=== PATIENT | female | born 1955 | race Two or more races ===

== ENCOUNTER 2018-03-15 21:06 | Emergency (ER) | payer SELFPAY ==
--- NOTE | 2018-03-15 21:10 | PDOC ---
History of Present Illness - General History Source: Patient Exam Limitations: No Limitations - History of Present Illness Initial Comments: 03/15/18 21:51 The patient is a 63 year old female, with a significant PMH of GERD, who presents to the emergency department with one week of shortness of breath. The patient states that she feels like she is gasping for air lately while at rest. The patient states she experienced the same symptoms of shortness of breath 2 years ago when she was noted to have high blood pressure and began Ramipril medication from her garment examiner Dr. Shania Wild. The patient states she was evaluated at an urgent care earlier today and advised to come to the ED for evaluation. The patient also endorses palpitations, fatigue, and epigastric abdominal discomfort which she states is usual of her GERD symptoms. She denies any recent travel, surgery or malignancies. She denies any family history of thromboembolic incidents. The patient states she has a family cardiac history ( brother passed of heart related condition in his 40s and both parents passed of heart disease). The patient states she has "borderline high cholesterol" which is untreated. The patient denies chest pain, headache and dizziness. Denies fever, chills, nausea, vomit, diarrhea and constipation. Denies dysuria, frequency, urgency and hematuria. Allergies: codeine Social history: Denies tobacco use. PCP: Dr Graves. <Nic Cleveland - Last Filed: 03/15/18 21:55> <Leah Humphries - Last Filed: 03/19/18 02:54> - General Chief Complaint: Shortness of Breath Stated Complaint: SOB Time Seen by Provider: 03/15/18 21:10 Past History <Nic Cleveland - Last Filed: 03/15/18 21:55> - Suicide/Smoking/Psychosocial Hx Smoking History: Never smoked <Leah Humphries - Last Filed: 03/19/18 02:54> - Past Medical History Allergies/Adverse Reactions: Allergies Allergy/AdvReac Type Severity Reaction Status Date / Time codeine AdvReac Vomiting Verified 03/15/18 21:09 Home Medications: Ambulatory Orders Aspirin [Aspirin EC] 324 mg PO ONCE 03/15/18 Ramipril 10 mg PO DAILY 03/15/18 Review of Systems - Review of Systems Comments:: 03/15/18 21:51 GENERAL/CONSTITUTIONAL: +Fatigue. No fever or chills. No weakness. HEAD, EYES, EARS, NOSE AND THROAT: No change in vision. No ear pain or discharge. No sore throat. CARDIOVASCULAR: +Shortness of breath. +Palpitations. No chest pain. RESPIRATORY: No cough, wheezing, or hemoptysis. GASTROINTESTINAL: +Epigastric discomfort. No nausea, vomiting, diarrhea or constipation. GENITOURINARY: No dysuria, frequency, or change in urination. MUSCULOSKELETAL: No joint or muscle swelling or pain. No neck or back pain. SKIN: No rash NEUROLOGIC: No headache, vertigo, loss of consciousness, or change in strength/ sensation. ENDOCRINE: No increased thirst. No abnormal weight change. HEMATOLOGIC/LYMPHATIC: No anemia, easy bleeding, or history of blood clots. ALLERGIC/IMMUNOLOGIC: No hives or skin allergy. <Nic Cleveland - Last Filed: 03/15/18 21:55> *Physical Exam - Vital Signs Last Vital Signs Temp Pulse Resp BP Pulse Ox 98.1 F 53 L 18 187/93 100 03/15/18 21:06 03/15/18 21:06 03/15/18 21:06 03/15/18 21:06 03/15/18 21:06 - Physical Exam Comments: 03/15/18 21:55 GENERAL: Awake, alert, and fully oriented, in no acute distress HEAD: No signs of trauma EYES: PERRLA, EOMI, sclera anicteric, conjunctiva clear ENT: Auricles normal inspection, hearing grossly normal, nares patent, oropharynx clear without exudates. Moist mucosa NECK: Normal ROM, supple, no lymphadenopathy, JVD, or masses LUNGS: Breath sounds equal, clear to auscultation bilaterally. No wheezes, and no crackles HEART: Regular rate and rhythm, normal S1 and S2, no murmurs, rubs or gallops ABDOMEN: +Epigastric tenderness. No guarding, no rebound. Soft, nontender, normoactive bowel sounds. No masses EXTREMITIES: Normal range of motion, no edema. No clubbing or cyanosis. No cords, erythema, or tenderness NEUROLOGICAL: Cranial nerves II through XII grossly intact. Normal speech, normal gait SKIN: Warm, Dry, normal turgor, no rashes or lesions noted. <Nic Cleveland - Last Filed: 03/15/18 21:55> Heart Score/ECG Review - History History: Slightly suspicious - Electrocardiogram EKG: Normal - Age Age: 45-65 - Risk Factors Risk Factors Heart Score: Yes Hx Hypertension, Yes Positive family hx of cardiac disease Based on the list above the patient has:: 1-2 risk factors - Troponin Troponin: </= normal limit - Score Heart Score - Total: 2 <Leah Humphries - Last Filed: 03/19/18 02:54> ED Treatment Course - LABORATORY CBC & Chemistry Diagram: 03/15/18 21:30 03/15/18 21:30 - ADDITIONAL ORDERS Additional order review: 03/15/18 21:30 RBC 4.14 MCV 88.8 MCHC 34.4 RDW 13.1 MPV 9.4 Neutrophils % 60.7 Lymphocytes % 31.5 Monocytes % 5.5 Eosinophils % 1.5 Basophils % 0.8 <Nic Cleveland - Last Filed: 03/15/18 21:55> - LABORATORY CBC & Chemistry Diagram: 03/15/18 21:30 03/15/18 21:30 <Leah Humphries - Last Filed: 03/19/18 02:54> Progress Note - Progress Note Progress Note: Documentation has been prepared under my direction and personally reviewed by me in its entirety. I attest that this documented accurately reflects all work, treatment, procedures and medical decision making performed by me. <Leah Humphries - Last Filed: 03/19/18 02:54> Medical Decision Making - Medical Decision Making As noted above, this 63-year-old woman presents with several day history of shortness of breath; she has also noted that her blood pressure has been elevated. No chest pain or associated symptoms have been reported. Exam as noted Workup included cardiac enzymes/d-dimer/BNP Because d-dimer was quite elevated (1900), CTA of the chest was performed: This was entirely normal; negative for pulmonary embolus specifically Patient's heart score is 2 First troponin was less than 0.3; 3 hour troponin was also not elevated. Patient will follow-up with garment examiner tomorrow(she had arranged while waiting results of her workup for follow-up appointment in the office). She should return to the emergency room if she has any further severe dyspnea or experiences chest pain/palpitations <Leah Humphries - Last Filed: 03/19/18 02:54> *DC/Admit/Observation/Transfer - Attestations Scribe Attestion: 03/15/18 21:52 Documentation prepared by Nic Cleveland, acting as medical hospital sales for Leah Humphries MD. <Nic Cleveland - Last Filed: 03/15/18 21:55> <Leah Humphries - Last Filed: 03/19/18 02:54> Diagnosis at time of Disposition: Hypertension Qualifiers: Hypertension type: essential hypertension Qualified Code(s): I10 - Essential ( primary) hypertension - Discharge Dispostion Disposition: HOME Condition at time of disposition: Stable - Referrals Referrals: Adalid Graves MD [Primary Care Provider] - Shania Wild MD [Staff Physician] - 24 hours - Patient Instructions Printed Discharge Instructions: Caregiver Stress: The Impact of Chronic Disease on the Family, High Blood Pressure Additional Instructions: Follow-up with garment examiner in Dr. Wild's office during the coming day as scheduled Return to ER if you have any worsening sensation of shortness of breath or develop chest pain, worsening palpitations - Post Discharge Activity
[2018-03-15 21:41] VITALS: TEMP 98.1; BMI 25.7
[2018-03-15 21:45] LABS: BASO % 0.8 % (0-2.0); EOS % 1.5 % (0-4.5); HEMATOCRIT 36.8 % (32.4-45.2); HEMOGLOBIN 12.7 GM/dl (10.7-15.3); LYMPH % 31.5 % (8-40); MCH 30.6 pg (25.7-33.7); MCHC 34.4 g/dl (32.0-36.0); MEAN CELL VOLUME 88.8 fl (80-96); MEAN PLT VOLUME 9.4 fl (7.5-11.1); MONO % 5.5 % (3.8-10.2); NEUT % 60.7 % (42.8-82.8); PLATELET COUNT 226 K/MM3 (134-434); RBC 4.14 M/mm3 (3.60-5.2); RDW 13.1 % (11.6-15.6); WHITE BLOOD COUNT 6.6 K/mm3 (4.0-10.8)
[2018-03-15 21:51] LABS: INR 1.06 (0.82-1.09); PROTHROMBIN TIME (PATIENT) 11.8 SEC (10.2-13.0)
[2018-03-15 21:57] LABS: ALBUMIN 4.4 g/dl (3.5-5.0); ALK PHOS 48 U/L (32-92); ANION GAP 8 (8-16); BILIRUBIN,TOTAL 0.4 mg/dl (0.2-1.0); BLOOD UREA NITROGEN 13 mg/dl (7-18); CALCIUM 9.4 mg/dl (8.4-10.2); CHLORIDE 105 mmol/L (98-107); CO2 25 mmol/L (22-28); CREATININE 0.7 mg/dl (0.6-1.3); GLUCOSE,RANDOM 91 mg/dl (74-106); POTASSIUM 3.6 mmol/L (3.5-5.1); SGOT/AST 16 U/L (10-42); SGPT/ALT 14 U/L (10-40); SODIUM 138 mmol/L (136-145); TOT PROT 6.6 g/dl (6.4-8.3)
[2018-03-16 00:45] VITALS: BP 181/89; PULSE 50
[2018-03-16] MEDS ORDERED: FAMOTIDINE 20 MG TABLET PO ONE (01:26)
[2018-03-16] MEDS ORDERED: FAMOTIDINE 20 MG TABLET ONE (01:38)
--- NOTE | 2018-03-16 08:55 | EKG ---
Test Reason : Blood Pressure : / mmHG Vent. Rate : 047 BPM Atrial Rate : 047 BPM P-R Int : 166 ms QRS Dur : 090 ms QT Int : 462 ms P-R-T Axes : 055 -20 011 degrees QTc Int : 408 ms SINUS BRADYCARDIA SEPTAL INFARCT , AGE UNDETERMINED NONSPECIFIC ST ABNORMALITY NO PREVIOUS ECGS AVAILABLE Confirmed by MASTER FELDER MD ([id number]) on 03/16/2018 8:55:26 AM Referred By: DR ULLOA Confirmed By:MASTER FELDER MD
== END 2018-03-16 02:17 | disposition home or self-care (01) ==
LOC: FER 21:06
DX: I10 Essential (primary) hypertension (principal)
CPT/HCPCS: 36415; 71045-TC-FY; 71275-TC; 80053; 82550; 83880; 84484; 85025; 85379; 85610; 93005; 99284-25

== ENCOUNTER 2018-09-27 12:11 | Emergency (ER) | payer OTHER ==
[2018-09-27 12:15] VITALS: TEMP 98.1; BMI 26.6
--- NOTE | 2018-09-27 12:42 | PDOC ---
Attending Attestation - Resident Resident Name: MaximinoNic - HPI HPI: 09/27/18 13:52 Pt presents to the ED complaining of a two day history of generalized abdominal pain. Pain is constant, cramping, moderate in severity. States that she has been constipated for more than one week, although she has been having small bowel movements. She is able to eat without vomiting, although with nausea and decreased appetite. Denies fever or urinary complaints. STates that she is unable to pass flatus. - Physicial Exam PE: 09/27/18 13:55 Agree with resident exam. PAteint is alert and awake and in no acute distress. Abdomen is soft, non tender, non distended without guarding or rebound. - Medical Decision Making 09/27/18 14:12 Pt presents to the ED complaining of abdominal pain and distention and constipation. Sent from clinic to rule out SBO. Will check CT abdomen and pelvis to evaluate for SBO, colitis, other intraabdominal pathology. Will check lipase to evaluate for pancreatitis. Will check Ua to evaluate for UTI. Will give IV tylenolol for pain control. Will discharge home if imaging is negative. 09/27/18 14:16
--- NOTE | 2018-09-27 12:47 | PDOC ---
History of Present Illness - General Chief Complaint: Pain, Acute Stated Complaint: abdominal pain,constipation,abdominal distension Time Seen by Provider: 09/27/18 12:40 History Source: Patient Exam Limitations: No Limitations - History of Present Illness Initial Comments: 63 yo F w a pmh of HTN, HLD, GERD who presents to the ER from the urgent care clinic stating she thinks she might have a bowel obstruction. She believes she experienced food poisoning one week prior on and says everything has nor been right since. Today she has epigastric bowel disomfort and is burping multiple times a minute. She reports that she had an episode of diarrhea this morning which she says had brown blood around it and there was blood on the tissue. She rates her epigastric pain as 6 out of 10 now but at times it can be 10/10. She describes the pain as stabbing in nature. She has been experiencing mild nausea but no emesis. She reports that she has not had a fever at any point during her illness. She has not taken any medications other than Prilosec to relieve her symptoms. She denies chest pain, SOB, difficulty breathing, headache, neck pain, vomiting , fever, chills, infections, dysuria, frequency, urgency, flank pain, back pain , recent travel, ankle or wrist swelling, or other joint pain. PCP: Dr. Graves PSH: None reported Allergies: Codeine Social Hx: Drinks wine, denies smoking or other substance usage. Past History - Past Medical History Allergies/Adverse Reactions: Allergies Allergy/AdvReac Type Severity Reaction Status Date / Time codeine AdvReac Vomiting Verified 09/27/18 12:12 Home Medications: Ambulatory Orders Ramipril 10 mg PO DAILY 03/15/18 Amlodipine Besylate [Norvasc -] 5 mg PO DAILY 09/27/18 Ciprofloxacin HCl [Cipro] 500 mg PO BID #14 tablet 09/27/18 metroNIDAZOLE [Metronidazole] 500 mg PO TID #21 tablet 09/27/18 COPD: No HTN: Yes - Suicide/Smoking/Psychosocial Hx Smoking History: Never smoked Have you smoked in the past 12 months: No Hx Alcohol Use: No Drug/Substance Use Hx: No Review of Systems - Review of Systems Able to Perform ROS?: Yes Comments:: CONSTITUTIONAL: Absent: fever, no chills, no fatigue EYES: Absent: visual changes ENT: Absent: ear pain, no sore throat CARDIOVASCULAR: Absent: chest pain, no palpitations RESPIRATORY: Absent: cough, no SOB GI: Present: Abdominal pain, nausea, diarrhea Absent: no vomiting, no constipation GENITOURINARY: Absent: dysuria, no frequency, no hematuria MUSKULOSKELETAL: Absent: back pain, no arthralgia, no myalgia SKIN: Absent: rash NEURO: Absent: headache *Physical Exam - Vital Signs Last Vital Signs Temp Pulse Resp BP Pulse Ox 98.1 F 79 18 129/77 99 09/27/18 12:11 09/27/18 12:11 09/27/18 12:11 09/27/18 12:11 09/27/18 12:11 - Physical Exam Comments: GENERAL: Well-appearing, well-nourished. No apparent distress. HEENT: Normocephalic, atraumatic. PERRL, EOM intact. CARDIOVASCULAR: Normal S1, S2. Regular rate and rhythm. PULMONARY: Clear to auscultation bilaterally. ABDOMEN: Abdomen is diffusely tender but still soft, non-distended, and with normal bowel sounds. Negative tolliver and negative Rovsig. EXTREMITIES: Normal ROM in all four extremities. No gross deformities. SKIN: Warm, dry. No rash NEUROLOGICAL: No focal neurological deficits. Moderate Sedation - Procedure Monitoring Vital Signs: Procedure Monitoring Vital Signs Temperature 98.1 F 09/27/18 12:11 Pulse Rate 79 09/27/18 12:11 Respiratory Rate 18 09/27/18 12:11 Blood Pressure 129/77 09/27/18 12:11 O2 Sat by Pulse Oximetry (%) 99 09/27/18 12:11 ED Treatment Course - LABORATORY CBC & Chemistry Diagram: 09/27/18 13:16 09/27/18 13:16 Medical Decision Making - Medical Decision Making 63 yo F w a pmh of HTN, HLD, GERD who presents to the ER from the urgent care clinic stating she thinks she might have a bowel obstruction. She believes she experienced food poisoning one week prior on and says everything has nor been right since. Today she has epigastric bowel disomfort and is burping multiple times a minute. She reports that she had an episode of diarrhea this morning which she says had brown blood around it and there was blood on the tissue. DDx IBNLT: SBO, colitis, diverticulitis, gastroenteritis, UTI, pylo, kidney stones, pancreatitis, mesenteric ischemia. Plan: Labs, urine, CTAP, re-assess. - Labs unremarkable. CTAP showed acute sigmoid diverticulitis. -Will DC patient on cipro and flagyl and have her follow up with PCP. *DC/Admit/Observation/Transfer Diagnosis at time of Disposition: Diverticulitis - Discharge Dispostion Disposition: HOME Condition at time of disposition: Stable Decision to Admit order: No - Prescriptions Prescriptions: Ciprofloxacin HCl [Cipro] 500 mg PO BID #14 tablet metroNIDAZOLE [Metronidazole] 500 mg PO TID #21 tablet - Referrals Referrals: Adalid Graves MD [Staff Physician] - - Patient Instructions Printed Discharge Instructions: DI for Diverticulitis Additional Instructions: You came into the ER with abdominal pain and some blood in your stools. We did a cat scan which showed you have diverticulitis - please see attached handout for further explanation. We are sending antibiotics to your pharmacy for you to take for the next seven days. Please make sure to schedule a follow up appointment with your primary care doctor in te next 3 to 5 days to ensure you are getting better and being taken care of. Please come back to thew ER if your pain worsens, you start vomiting, get a high fever, or have any other new or worsening concerns. Thank you for coming to the [place] [facility]. We hope you feel better soon! Print Language: GUYANESE - Post Discharge Activity
[2018-09-27] MEDS ORDERED: ACETAMINOPHEN 1000 MG/100 ML VIAL (NON FORMULARY) IVPB ONE (12:57)
[2018-09-27] MEDS ORDERED: SODIUM CHLORIDE 0.9% 500 ML INFUS.BAG IV ONE (12:59)
[2018-09-27] MEDS ORDERED: ACETAMINOPHEN INJECTION 100 ML IVPB ONE (13:09)
[2018-09-27 13:25] LABS: BASO % 0.4 % (0-2.0); EOS % 0.3 % (0-4.5); HEMATOCRIT 38.7 % (32.4-45.2); HEMOGLOBIN 12.6 GM/dl (10.7-15.3); LYMPH % 11.3 % (8-40); MCH 28.5 pg (25.7-33.7); MCHC 32.5 g/dl (32.0-36.0); MEAN CELL VOLUME 87.7 fl (80-96); MEAN PLT VOLUME 8.7 fl (7.5-11.1); MONO % 3.8 % (3.8-10.2); NEUT % 84.2 % (42.8-82.8); PLATELET COUNT 272 K/MM3 (134-434); RBC 4.41 M/mm3 (3.60-5.2); RDW 13.8 % (11.6-15.6); WHITE BLOOD COUNT 9.9 K/mm3 (4.0-10.8)
[2018-09-27 13:34] LABS: ALBUMIN 4.2 g/dl (3.5-5.0); ALK PHOS 73 U/L (32-92); ANION GAP 9 MMOL/L (8-16); BILIRUBIN,TOTAL 0.5 mg/dl (0.2-1.0); BLOOD UREA NITROGEN 14 mg/dl (7-18); CHLORIDE 102 mmol/L (98-107); CO2 22 mmol/L (22-28); CREATININE 0.7 mg/dl (0.6-1.3); GLUCOSE,RANDOM 89 mg/dl (74-106); SGOT/AST 20 U/L (10-42); SGPT/ALT 24 U/L (10-40); SODIUM 133 mmol/L (136-145); TOT PROT 7.2 g/dl (6.4-8.3)
[2018-09-27 14:37] LABS: URINE APPEARANCE Clear; URINE BILIRUBIN Negative (NEGATIVE); URINE COLOR Yellow; URINE GLUCOSE (UA) Negative (NEGATIVE); URINE KETONE 2+ (NEGATIVE); URINE LEUK ESTERASE Negative (NEGATIVE); URINE NITRITE Negative (NEGATIVE); URINE PROTEIN Negative (NEGATIVE); URINE UROBILINOGEN 0.2 (0.2-1.0)
[2018-09-27] MEDS ORDERED: metroNIDAZOLE 500 MG TABLET PO ONE (15:00)
[2018-09-27] MEDS ORDERED: metroNIDAZOLE 250 MG TABLET ONE (15:00)
[2018-09-27] MEDS ORDERED: CIPROFLOXACIN 500 MG TABLET (RESTRICTED TO ID) PO ONE (15:00)
[2018-09-27] MEDS ORDERED: CIPROFLOXACIN 250 MG TABLET (RESTRICTED TO ID) PO ONE (15:01)
[2018-09-27 15:10] LABS: LIPASE 101 U/L (73-393)
[2018-09-27 15:16] VITALS: BP 122/68; PULSE 74
== END 2018-09-27 15:15 | disposition home or self-care (01) ==
LOC: FER 12:11
PROC: 3E033NZ Introduction of Analgesics, Hypnotics, Sedatives into Peripheral Vein, Percutaneous Approach (ICD-10-PCS; principal; 2018-09-27)
PROC: 3E0337Z Introduction of Electrolytic and Water Balance Substance into Peripheral Vein, Percutaneous Approach (ICD-10-PCS; 2018-09-27)
DX: K57.92 Diverticulitis of intestine, part unspecified, without perforation or abscess without bleeding (principal); I10 Essential (primary) hypertension; E78.5 Hyperlipidemia, unspecified; K21.9 Gastro-esophageal reflux disease without esophagitis
CPT/HCPCS: 36415; 74177-TC; 80053; 81003; 83605; 83690; 85025; 87086; 99283-25; J0131

== ENCOUNTER 2021-03-17 22:44 | Emergency (ER) | payer OTHER ==
[2021-03-17 22:54] VITALS: BP 132/72; PULSE 102; TEMP 99.8; BMI 26.5
[2021-03-17] MEDS ORDERED: SODIUM CHLORIDE 1,000 ML IV STA (22:59)
[2021-03-17] MEDS ORDERED: ONDANSETRON 4 MG/2 ML VIAL IVPB ONE (22:59)
[2021-03-17] MEDS ORDERED: ACETAMINOPHEN 1000 MG/100 ML VIAL (NON FORMULARY) IVPB ONE (22:59)
[2021-03-17] MEDS ORDERED: ACETAMINOPHEN INJECTION 100 ML IVPB ONE (23:15)
[2021-03-17] MEDS ORDERED: ONDANSETRON 4 MG/2 ML VIAL ONE (23:15)
[2021-03-17 23:22] LABS: HEMATOCRIT 39.8 % (32.4-45.2); HEMOGLOBIN 13.4 GM/dl (10.7-15.3); MCH 29.8 pg (25.7-33.7); MCHC 33.7 g/dl (32.0-36.0); MEAN CELL VOLUME 88.5 fl (80-96); MEAN PLT VOLUME 8.5 fl (7.5-11.1); PLATELET COUNT 285 10^3/uL (134-434); RDW 14.4 % (11.6-15.6); WHITE BLOOD COUNT 13.6 K/mm3 (4.0-10.8)
[2021-03-17 23:36] LABS: ALBUMIN 4.7 g/dl (3.4-5.0); BILIRUBIN,TOTAL 0.8 mg/dl (0.2-1); CALCIUM 9.2 mg/dl (8.5-10); CREATININE 0.6 mg/dl (0.55-1.3); TOT PROT 7.5 g/dl (6.4-8.2)
[2021-03-17 23:41] LABS: PLATELET ESTIMATE ADEQUATE
[2021-03-18] MEDS ORDERED: CIPROFLOXACIN 500 MG TABLET (RESTRICTED TO ID) PO ONE (01:26)
[2021-03-18] MEDS ORDERED: metroNIDAZOLE 500 MG TABLET PO ONE (01:26)
[2021-03-18] MEDS ORDERED: metroNIDAZOLE 250 MG TABLET ONE (01:30)
[2021-03-18] MEDS ORDERED: CIPROFLOXACIN 250 MG TABLET (RESTRICTED TO ID) PO ONE (01:30)
== END 2021-03-18 01:42 | disposition home or self-care (01) ==
LOC: FER 22:44
PROC: 3E0333Z Introduction of Anti-inflammatory into Peripheral Vein, Percutaneous Approach (ICD-10-PCS; principal; 2021-03-17)
PROC: 3E033GC Introduction of Other Therapeutic Substance into Peripheral Vein, Percutaneous Approach (ICD-10-PCS; 2021-03-17)
PROC: 3E0337Z Introduction of Electrolytic and Water Balance Substance into Peripheral Vein, Percutaneous Approach (ICD-10-PCS; 2021-03-17)
DX: K57.92 Diverticulitis of intestine, part unspecified, without perforation or abscess without bleeding (principal)
CPT/HCPCS: 36415; 74177-TC; 80053; 81003; 81015; 83690; 85025; 87086; 99285-25; J0131

== ENCOUNTER 2021-03-28 13:48 | Emergency (ER) | payer OTHER ==
[2021-03-28 14:02] VITALS: BP 130/68; PULSE 74; TEMP 98.1; BMI 25.6
[2021-03-28] MEDS ORDERED: SODIUM CHLORIDE 0.9% 500 ML INFUS.BAG IV ONE (14:05)
[2021-03-28 14:27] LABS: BASO % 0.7 % (0-2.0); EOS % 1.1 % (0-4.5); HEMATOCRIT 37.2 % (32.4-45.2); HEMOGLOBIN 12.2 GM/dl (10.7-15.3); LYMPH % 16.2 % (8-40); MCH 29.1 pg (25.7-33.7); MCHC 32.8 g/dl (32.0-36.0); MEAN CELL VOLUME 88.7 fl (80-96); MEAN PLT VOLUME 8.1 fl (7.5-11.1); PLATELET COUNT 368 10^3/uL (134-434); RBC 4.19 M/mm3 (3.60-5.2); RDW 13.9 % (11.6-15.6); WHITE BLOOD COUNT 9.7 K/mm3 (4.0-10.8)
[2021-03-28 14:43] LABS: ALBUMIN 4.1 g/dl (3.4-5.0); BILIRUBIN,TOTAL 0.9 mg/dl (0.2-1); CALCIUM 8.9 mg/dl (8.5-10); CREATININE 0.7 mg/dl (0.55-1.3)
[2021-03-28] MEDS ORDERED: CIPROFLOXACIN 500 MG TABLET (RESTRICTED TO ID) PO ONE (16:36)
[2021-03-28] MEDS ORDERED: metroNIDAZOLE 250 MG TABLET PO ONE (16:36)
== END 2021-03-28 16:52 | disposition home or self-care (01) ==
LOC: FER 13:48
DX: K57.92 Diverticulitis of intestine, part unspecified, without perforation or abscess without bleeding (principal)
CPT/HCPCS: 36415; 74177-TC; 80053; 83690; 85025; 99285-25; Q9967

== ENCOUNTER 2022-10-13 17:04 | Emergency (ER) | payer OTHER ==
[2022-10-13 17:17] VITALS: BP 157/89; PULSE 75; RESP 16; TEMP 98.5; BMI 26.5
[2022-10-13 18:47] LABS: HEMATOCRIT 40.8 % (32.4-45.2); HEMOGLOBIN 13.7 G/dL (10.7-15.3); MCH 29.7 pg (25.7-33.7); MCHC 33.7 g/dl (32.0-36.0); MEAN CELL VOLUME 88.3 fl (80-96); MEAN PLT VOLUME 8.5 fl (7.5-11.1); PLATELET COUNT 296.2 10^3/uL (134-434); RBC 4.62 10^6/uL (3.60-5.2); RDW 14.7 % (11.6-15.6); WHITE BLOOD COUNT 6.4 10^3/uL (4.0-10.8)
[2022-10-13 18:48] LABS: BILIRUBIN,TOTAL 0.7 mg/dl (0.2-1); CALCIUM 9.9 mg/dl (8.5-10); CREATININE 0.7 mg/dl (0.55-1.3); TOT PROT 7.5 g/dl (6.4-8.2)
[2022-10-13] MEDS ORDERED: MAG HYDROX/AL HYDROX/SIMETH -MYLANTA- ORAL SUSPENSION PO ONE (19:39)
[2022-10-13] MEDS ORDERED: FAMOTIDINE 20 MG/50 ML IVPB 20 MG in PREMIX 50 IVPB ONE (19:39)
[2022-10-13] MEDS ORDERED: FAMOTIDINE 10 MG TABLET PO ONE (19:42)
[2022-10-13] MEDS ORDERED: FAMOTIDINE 20 MG TABLET ONE (19:43)
[2022-10-13] MEDS ORDERED: MAG HYDROX/AL HYDROX/SIMETH 30 ML UNIT-DOSE CUP ONE (19:43)
[2022-10-13] MEDS ORDERED: FAMOTIDINE 20 MG TABLET PO ONE (19:47)
[2022-10-13 20:03] LABS: PLATELET ESTIMATE ADEQUATE
== END 2022-10-13 22:14 | disposition home or self-care (01) ==
LOC: FER 17:04
DX: K85.90 Acute pancreatitis without necrosis or infection, unspecified (principal); R00.2 Palpitations
CPT/HCPCS: 0241U-QW; 36415; 71046-TC-FY; 80053; 83690; 84443; 84484; 85027; 93005; 99285-25

== ENCOUNTER 2022-10-14 21:40 | Emergency (ER) | payer OTHER ==
[2022-10-14 21:45] VITALS: BMI 26.5
[2022-10-14 21:50] VITALS: BP 151/77; PULSE 81; RESP 16; TEMP 99.2
[2022-10-14] MEDS ORDERED: LOPERAMIDE HCL 2 MG CAPSULE PO ONE (23:24)
[2022-10-14] MEDS ORDERED: LOPERAMIDE HCL 2 MG CAPSULE ONE (23:29)
== END 2022-10-14 23:31 | disposition home or self-care (01) ==
LOC: FER 21:40
DX: R19.7 Diarrhea, unspecified (principal)
CPT/HCPCS: 36415; 82272; 99283-25